=== PATIENT | female | born 1945 | race Caucasian/White ===

== ENCOUNTER → 2017-07-02 | Outpatient (CLI) | payer OTHER | END | disposition home or self-care (01) | LOC: CDC 12:22 | DX: Z01.810 Encounter for preprocedural cardiovascular examination (principal); M43.10 Spondylolisthesis, site unspecified; I49.1 Atrial premature depolarization | CPT/HCPCS: 93000 ==

== ENCOUNTER 2017-07-21 21:52 | Inpatient (IN) | payer OTHER ==
[~2017-07-21] VITALS: Ht 165.1 cm; Wt 80.7 kg
[~2017-07-21 21:52] MED LIST: DULCOLAX5 MG PO; GLUCOPHAGE1000 MG PO; GLUCOTROL XL2.5 MG PO; LO-DOSE ASPIRIN81 M2 PO; OXYCODONE-APAP1 EACH PO; PRESERVISION T1 EACH PO; ROBAXIN500 MG PO; XANAX1 MG PO; ZESTRIL20 MG PO
[2017-07-22 09:05] VITALS: BP 177/73
[2017-07-22 09:23] LABS: POINT-OF-CARE METER ID UU14174212
[2017-07-22 14:02] LABS: POINT-OF-CARE METER ID UU13113675
[2017-07-22 15:30] VITALS: BP 136/63
[2017-07-22 16:19] LABS: POINT-OF-CARE METER ID UU14149397
[2017-07-22 19:44] VITALS: BP 136/63
[2017-07-22 21:46] LABS: POINT-OF-CARE METER ID UU14149397
[2017-07-22 23:07] VITALS: BP 130/61
[2017-07-23 05:16] VITALS: BP 135/63
[2017-07-23 06:38] LABS: POINT-OF-CARE METER ID UU13113712
[2017-07-23 08:03] VITALS: BP 108/51
[2017-07-23 11:14] LABS: POINT-OF-CARE METER ID UU14117124
[2017-07-23 12:52] VITALS: BP 197/86
[2017-07-23 15:42] VITALS: BP 165/76
[2017-07-23 16:05] LABS: POINT-OF-CARE METER ID UU14117124
[2017-07-23 21:42] LABS: POINT-OF-CARE METER ID UU14188577
[2017-07-23 23:45] VITALS: BP 165/72
[2017-07-24 06:39] LABS: POINT-OF-CARE METER ID UU14117124
[2017-07-24 08:28] VITALS: BP 169/74
[2017-07-24 16:44] VITALS: BP 128/59
[2017-07-24 17:10] LABS: POINT-OF-CARE METER ID UU14188577
[2017-07-24 23:55] VITALS: BP 147/63
[2017-07-25 06:21] LABS: POINT-OF-CARE METER ID UU14117124
[2017-07-25 07:56] VITALS: BP 138/65
== END 2017-07-25 12:55 | disposition home or self-care (01) | DRG 460 ==
LOC: ENRESERV 21:52 → 2SOUTH 07-22 07:59 → 3EAST 07-22 07:59 → 2SOUTH 07-22 09:21 → ENRESERV 07-22 13:40 → 2SOUTH 07-22 14:49 → 3EAST 07-22 15:19
PROVIDERS: Neurological Surgery
DX: M43.16 Spondylolisthesis, lumbar region (principal); M48.061 Spinal stenosis, lumbar region without neurogenic claudication; M53.2X6 Spinal instabilities, lumbar region; E11.9 Type 2 diabetes mellitus without complications; F41.9 Anxiety disorder, unspecified; K59.00 Constipation, unspecified; E66.9 Obesity, unspecified; Z68.29 Body mass index [BMI] 29.0-29.9, adult; Z87.891 Personal history of nicotine dependence; Z79.84 Long term (current) use of oral hypoglycemic drugs; Z79.82 Long term (current) use of aspirin
CPT/HCPCS: 71020; 72100; 76000; 82948; 86850; 86900; 86901; 94799; 97530 GP; J0131; J0330; J0690; J1170; J1580; J1885; J2405; J2710; J3010; J3370; J3480